=== PATIENT | male | born 1985 ===

== ENCOUNTER 2022-03-07 01:08 | Emergency (ER) | payer OTHER ==
[2022-03-07 01:16] VITALS: BP 112/75; PULSE 87; TEMP 98.1; BMI 25.8
== END 2022-03-07 01:41 | disposition home or self-care (01) ==
LOC: FER 01:08
DX: T73.3XXA Exhaustion due to excessive exertion, initial encounter (principal)
CPT/HCPCS: 93005; 93010; 99283-25